=== PATIENT | male | born 2000 | race Two or more races ===

== ENCOUNTER 2024-09-10 17:54 | Emergency (ER) | payer SELFPAY ==
[~2024-09-10] VITALS: Ht 182.9 cm; Wt 95.0 kg
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
[2024-09-10 18:08] VITALS: BP 129/74; PULSE 114; RESP 18; O2SAT 96
== END 2024-09-10 18:42 ==
LOC: ER 17:54
DX: F10.129 Alcohol abuse with intoxication, unspecified (principal); F17.210 Nicotine dependence, cigarettes, uncomplicated; Z02.89 Encounter for other administrative examinations; V89.2XXA Person injured in unspecified motor-vehicle accident, traffic, initial encounter; Y93.I9 Activity, other involving external motion; Y92.481 Parking lot as the place of occurrence of the external cause; Y99.8 Other external cause status